=== PATIENT | female | born 1965 ===

== ENCOUNTER 2016-07-14 01:25 | Emergency (ER) | payer SELFPAY ==
[2016-07-14 01:41] VITALS: BP 130/87; PULSE 86; RESP 18; TEMP 97.9; O2SAT 97
--- NOTE | 2016-07-14 02:40 | ED PDOC ---
Lower Extremity Pain/Injury Time Seen by Provider: 07/14/16 01:54 Chief Complaint (Nursing): Lower Extremity Problem/Injury Chief Complaint (Provider): Lower right leg pain History Per: Patient History/Exam Limitations: no limitations Onset/Duration Of Symptoms: Days (7) Current Symptoms Are (Timing): Still Present Severity: Moderate Additional History Per: Patient Additional Complaint(s): The pt is a 51yo female with PMHx of DM, presents to the ED for evaluation of lower right leg pain for the past 7 days. Pt reports pain is caused due to a wound on her lower right leg. She denies any discharge, fever or trauma to the area. Currently, she offers no additional medical complaints. Past Medical History Reviewed: Historical Data, Nursing Documentation, Vital Signs Vital Signs: Last Vital Signs Temp 97.9 F 07/14/16 01:37 Pulse 86 07/14/16 01:37 Resp 18 07/14/16 01:37 BP 130/87 07/14/16 01:37 Pulse Ox 97 07/14/16 01:37 - Medical History PMH: Diabetes - Surgical History Surgical History: No Surg Hx - Family History Family History: States: Unknown Family Hx - Home Medications Home Medications: Ambulatory Orders Medication Instructions Recorded Cephalexin [cephalexin] 500 mg PO BID #14 cap 07/14/16 traMADol [Ultram] 50 mg PO Q6 PRN #12 tab 07/14/16 - Allergies Allergies/Adverse Reactions: Allergies Allergy/AdvReac Type Severity Reaction Status Date / Time No Known Allergies Allergy Verified 07/14/16 01:37 Review of Systems ROS Statement: Except As Marked, All Systems Reviewed And Found Negative Constitutional: Negative for: Fever Musculoskeletal: Positive for: Leg Pain (lower right) Physical Exam - Reviewed Nursing Documentation Reviewed: Yes Vital Signs Reviewed: Yes - Physical Exam Appears: Positive for: Well, Non-toxic, No Acute Distress Head Exam: Positive for: ATRAUMATIC, NORMAL INSPECTION, NORMOCEPHALIC Skin: Positive for: Normal Color Eye Exam: Positive for: Normal appearance Neck: Positive for: Normal Cardiovascular/Chest: Positive for: Regular Rate, Rhythm Respiratory: Positive for: Normal Breath Sounds. Negative for: Respiratory Distress Extremity: Positive for: Normal ROM, Other (closed wound, 2 cm in diameter present in lower right leg. No drainage, mild surrounding erythema noted.) - ECG O2 Sat by Pulse Oximetry: 97 Medical Decision Making Medical Decision Making: Time: 214 Impression: Diabetic ulcer, possibly complicated due to infection Plan: -- Tramadol 50 mg PO Time: 1 Pt stable for d/c home, advised to f/u with Podiatry. Scribe Attestation: Documented by Shante Gutierrez acting as a scribe for Joanne Mccormick MD. Provider Attestation: All medical record entries made by the Scribe were at my direction and personally dictated by me. I have reviewed the chart and agree that the record accurately reflects my personal performance of the history, physical exam, medical decision making, and the department course for this patient. I have also personally directed, reviewed, and agree with the discharge instructions and disposition. Disposition - Clinical Impression Clinical Impression: Leg wound, right - Patient ED Disposition Is Patient to be Admitted: No - Disposition Referrals: [facility] [Outside] Disposition: Routine/Home Disposition Time: 02:42 Condition: GOOD Additional Instructions: Follow up with your PCP in 2-3 days. Prescriptions: Cephalexin [cephalexin] 500 mg PO BID #14 cap traMADol [Ultram] 50 mg PO Q6 PRN #12 tab PRN Reason: Pain, Severe (8-10) Instructions: Diabetic Foot Ulcers (ED) Print Language: MALAGASY
== END 2016-07-14 02:47 | disposition home or self-care (01) ==
LOC: H.ER 01:25
DX: M79.604 Pain in right leg (principal); E11.9 Type 2 diabetes mellitus without complications